=== PATIENT | male | born 1975 ===

== ENCOUNTER 2018-05-28 16:51 | Inpatient (IN) | payer MEDICAID ==
[2018-05-28 16:57] VITALS: BMI 28.0
[2018-05-28 17:47] LABS: BASO # 0.2 K/uL (0.0-0.2); BASO % 1.7 % (0.0-2.0); EOS % 0.2 % (0.0-4.0); HEMOGLOBIN 15.3 g/dL (12.0-18.0); LYMPH # 1.7 K/uL (1.0-4.3); LYMPH % 15.4 % (20.0-40.0); MEAN CELL VOLUME 84.9 fL (80.0-94.0); MEAN CORPUSCULAR HEMOGLOBIN 28.8 pg (27.0-31.0); MEAN CORPUSCULAR HGB CONC 33.9 g/dL (33.0-37.0); MEAN PLATELET VOLUME 8.1 fL (7.2-11.7); MONO # 0.9 K/uL (0.0-0.8); MONO % 7.9 % (0.0-10.0); NEUT # 8.2 K/uL (1.8-7.0); NEUT % 74.8 % (50.0-75.0); NRBC % 0.1 % (0.0-2.0); RBC 5.32 Mil/uL (4.40-5.90); RED CELL DISTRIBUTION WIDTH 13.9 % (11.5-14.5); WHITE BLOOD COUNT 10.9 K/uL (4.8-10.8)
[2018-05-28 17:55] LABS: INR 1.2; PROTHROMBIN TIME 12.9 SECONDS (9.7-12.2)
--- NOTE | 2018-05-28 17:58 | RAD ---
Date of service: 05/28/2018 PROCEDURE: CHEST RADIOGRAPH, 1 VIEW HISTORY: chest pain COMPARISON: None available. FINDINGS: LUNGS: Clear. PLEURA: No pneumothorax or pleural fluid seen. CARDIOVASCULAR: No radiographic findings to suggest acute or significant cardiovascular disease. OSSEOUS STRUCTURES: No significant abnormalities. VISUALIZED UPPER ABDOMEN: Normal. OTHER FINDINGS: None. IMPRESSION: No active disease.
[2018-05-28 18:05] LABS: ALB/GLOB RATIO 1.6 (1.0-2.1); ALBUMIN 4.9 g/dL (3.5-5.0); ALT/SGPT 74 U/L (21-72); AST/SGOT 33 U/L (17-59); BLOOD UREA NITROGEN 12 mg/dL (9-20); CALCIUM 10.2 mg/dl (8.6-10.4); GFR NON-AFRICAN AMERICAN > 60
[2018-05-28 18:17] LABS: B-TYPE NATRIURETIC PEPTIDE 142 pg/mL (0-450)
--- NOTE | 2018-05-28 18:20 | C.PDOC ---
History Of Present Illness The patient reports that he developed mid sternal chest pain which is associated with left arm radiation. The patient admit that he took 20 tablets Vivance last night and say thinks he was trying to hurt humself. denies SOB, back pain, leg edema, nausea, vomiting, travel, cough. <Caren Hinds - Last Filed: 05/28/18 18:59> History Per: Patient History/Exam Limitations: no limitations Onset/Duration Of Symptoms: Persistent Current Symptoms Are (Timing): Still Present Pain Scale Rating Of: 5 Associated Symptoms: denies: Nausea, Dyspnea, Diaphoresis Exacerbating Factors: None Alleviating Factors: None <Caren Hinds - Last Filed: 05/28/18 18:59> <Tayler Esposito - Last Filed: 05/28/18 19:25> <Alexandra Estes - Last Filed: 05/28/18 22:33> Time Seen by Provider: 05/28/18 17:10 Chief Complaint (Nursing): Chest Pain Past Medical History Vital Signs: Last Vital Signs Temp 99.1 F 05/28/18 16:59 Pulse 104 H 05/28/18 16:59 Resp 14 05/28/18 16:59 BP 165/103 H 05/28/18 16:59 Pulse Ox 98 05/28/18 16:59 - Medical History PMH: Asthma Denies: Chronic Kidney Disease Family History: States: Unknown Family Hx - Social History Hx Tobacco Use: No Hx Alcohol Use: Yes Hx Substance Use: Yes (pt denies) - Immunization History Hx Tetanus Toxoid Vaccination: No Hx Influenza Vaccination: No Hx Pneumococcal Vaccination: No <Caren Hinds - Last Filed: 05/28/18 18:59> Vital Signs: Last Vital Signs Temp 99.1 F 05/28/18 16:59 Pulse 108 H 05/28/18 19:18 Resp 17 05/28/18 19:18 BP 159/101 H 05/28/18 19:18 Pulse Ox 98 05/28/18 19:18 <Tayler Esposito - Last Filed: 05/28/18 19:25> Vital Signs: Last Vital Signs Temp 99.1 F 05/28/18 16:59 Pulse 104 H 05/28/18 16:59 Resp 14 05/28/18 16:59 BP 165/103 H 05/28/18 16:59 Pulse Ox 98 05/28/18 19:00 <Alexandra Estes - Last Filed: 05/28/18 22:33> Physical Exam - Physical Exam Appears: Non-toxic, No Acute Distress Skin: Normal Color, Warm, No Rash Head: Atraumatic, Normacephalic Eye(s): bilateral: Normal Inspection, PERRL, EOMI Oral Mucosa: Moist Throat: No Erythema, No Exudate Neck: Normal ROM, Supple Chest: Symmetrical, Tenderness Cardiovascular: Rhythm Regular, No Friction Rub, No Murmur Respiratory: Normal Breath Sounds, No Rales, No Rhonchi, No Stridor, No Wheezing Gastrointestinal/Abdominal: Soft, No Tenderness Back: Normal Inspection, No CVA Tenderness Extremity: Normal ROM, No Tenderness, No Swelling Neurological/Psych: Oriented x3, Normal Motor, Normal Sensation <Caren Hinds - Last Filed: 05/28/18 18:59> ED Course And Treatment - Laboratory Results Result Diagrams: 05/28/18 17:42 05/28/18 17:42 ECG: Interpreted By Me ECG Rhythm: Sinus Tachycardia ECG Interpretation: No Acute Changes Rate From EC (bpm) O2 Sat by Pulse Oximetry: 98 (on RA) Pulse Ox Interpretation: Normal - Radiology CXR: Interpreted by Me CXR Interpretation: Yes: No Acute Disease. No: Infiltrates <Caren Hinds - Last Filed: 05/28/18 18:59> - Laboratory Results Result Diagrams: 05/28/18 17:42 05/28/18 17:42 <Tayler Esposito - Last Filed: 05/28/18 19:25> - Laboratory Results Result Diagrams: 05/28/18 17:42 05/28/18 17:42 Pulse Ox Interpretation: Normal - Radiology CXR: Interpreted by Me, Viewed By Me CXR Interpretation: No: Infiltrates, Fracture, Pnemothorax <Alexandra Estes - Last Filed: 05/28/18 22:33> Critical Care Time - Critical Care Note Total Time (in mins): 30 Documented critical care: time excludes all time spent performing seperately billable procedures. <Alexandra Estes - Last Filed: 05/28/18 22:33> Medical Decision Making Medical Decision Making: Poison control was called who states to monitor vitals and provide supportive care. <Caren Hinds - Last Filed: 05/28/18 18:59> Disposition - Disposition Disposition Time: 18:48 <Caren Hinds - Last Filed: 05/28/18 18:59> <Tayler Esposito Obi - Last Filed: 05/28/18 19:25> Discussed With DrTucker: Lionel Trejo Comment: accepted the pt on his service and took over the care at 10:15 PM Doctor Will See Patient In The: Hospital Counseled Patient/Family Regarding: Studies Performed, Diagnosis - Disposition Disposition Time: 19:00 - POA Present On Arrival: Poor Glycemic Control <Alexandra Estes - Last Filed: 05/28/18 22:33> - Disposition Disposition: HOSPITALIZED Condition: FAIR Forms: [employer] (Danish) - Clinical Impression Clinical Impression: Chest pain, Depressed, Drug overdose, intentional - PA / DOOR TO [employer]OR [employer]OR / Resident Statement MD/DO has reviewed & agrees with the documentation as recorded. <Tayler Esposito Obi - Last Filed: 05/28/18 19:25> Physician Patient Turnover Patient Signed Over To: Alexandra Estes Handoff Comments: PEnding labs and psych evaluation <Caren Hinds - Last Filed: 05/28/18 18:59> Decision To Admit <Caren Hinds - Last Filed: 05/28/18 18:59> - Pt Status Changed To: Hospital Disposition Of: Inpatient - Admit Certification Admit to Inpatient:: After my assessment, the patient will require hospitalization for at least two midnights. This is because of the severity of symptoms shown, intensity of services needed, and/or the medical risk in this patient being treated as an outpatient. - InPatient: Physician Admission Certification: I certify that this patient requires 2 or more midnights of care for the following reason:: After my assessment, the patient will require hospitalization for at least two midnights. This is because of the severity of symptoms shown, intensity of services needed, and/or the medical risk in this patient being treated as an outpatient - . Bed Request Type: Telemetry Admitting Physician: Lionel Trejo <Alexandra Estes - Last Filed: 05/28/18 22:33> - . Patient Diagnosis: Chest pain, Depressed, Drug overdose, intentional
[2018-05-28 19:09] LABS: URINE BILIRUBIN NEGATIVE (NEGATIVE); URINE BLOOD NEGATIVE (NEGATIVE); URINE CLARITY Clear (Clear); URINE COLOR Yellow (YELLOW); URINE GLUCOSE (UA) NORMAL (Normal); URINE LEUKOCYTE ESTERASE NEG Leu/uL (Negative); URINE PROTEIN NEGATIVE (NEGATIVE); URINE UROBILINOGEN NORMAL mg/dL (0.2-1.0)
[2018-05-28 19:21] LABS: BARBITURATES, UR NEGATIVE (NEGATIVE); BENZODIAZEPINES, UR NEGATIVE (NEGATIVE); OPIATES, UR NEGATIVE (NEGATIVE); PHENCYCLIDINE, UR NEGATIVE (NEGATIVE)
[2018-05-28] MEDS ORDERED: Labetalol 25mg/5ml Syringe IVP STA (21:39)
[2018-05-28] MEDS ORDERED: Labetalol 5mg/ml (4ml) ONE (21:46)
[2018-05-28] MEDS ORDERED: Dextrose 5%-0.225% NS 1,000 ML IV ONE (22:39)
[2018-05-28] MEDS: Dextrose 5%/0.45% NS 1,000 ML IV SCH (22:41)
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
[2018-05-29] MEDS: Dextrose 5%/0.45% NS 1,000 ML IV SCH ×4 (12:17→22:45)
--- NOTE | 2018-05-29 16:18 | CARD ---
APPROVED REPORT Date of service: 05/28/2018 EKG Measurement Heart [id number] <Conclusion> Sinus tachycardia Otherwise normal ECG
--- NOTE | 2018-05-29 18:35 | CP.PCM.PN ---
Subjective - Date & Time of Evaluation Date of Evaluation: 05/29/18 Time of Evaluation: 09:50 - Subjective Subjective: CC: Vivance Overdose HPI: Patient is a 42 year old male with past medical history of asthma, substance abuse and other psychiatric illness (psychosis, anxiety and PTSD), who presents to the ED with complete stabbing chest pain radiating to the shoulder. Patient also noted on admission of Vyvanse overdose ( 20 tablets). Patient states that he too the pills because he was trying to stay awake not because he was trying to hurt himself. During the encounter, patient still admits to mild chest pain but denies palpitation, diaphoresis, nausea, vomiting, abdominal pain, diarrhea, constipation, hematochezia or numbness/tingling. PMHx: asthma, substance abuse and other psychiatric illness (psychosis, anxiety and PTSD) PSHx: Right foot surgery FHx: Significant for DM, HTN and bipolar Medication: Celexa 60mg PO daily, Geodon 10mg PO daily Allergies: NKDA Social Hx: Lives with mother, unemployed. Admits to cocaine use (last use 3 weeks ago), denies tobacco and ETOH use Objective - Vital Signs/Intake and Output Vital Signs (last 24 hours): Temp Pulse Resp BP Pulse Ox 98.3 F 103 H 20 135/91 H 98 05/29/18 15:00 05/29/18 15:00 05/29/18 15:00 05/29/18 15:00 05/29/18 15:00 Intake and Output: 05/29/18 05/29/18 06:59 18:59 Intake Total 750 1300 Balance 750 1300 - Medications Medications: Current Medications Aripiprazole (Abilify) 5 mg PO QPM [facility] Last Admin: 05/29/18 17:24 Dose: 5 mg Clonazepam (Klonopin) 0.5 mg PO BID OTTO Last Admin: 05/29/18 12:16 Dose: 0.5 mg Escitalopram Oxalate (Lexapro) 10 mg PO DAILY [facility] Last Admin: 05/29/18 12:16 Dose: 10 mg Heparin Sodium (Porcine) (Heparin) 5,000 units SC Q12 [facility] Dextrose/Sodium Chloride (Dextrose 5%/0.45% Ns 1000 Ml) 1,000 mls @ 125 mls/hr IV .Q8H [facility] Last Admin: 05/29/18 15:43 Dose: Not Given Influenza Virus Vaccine (Fluzone Quad [id number]) 60 mcg IM .ONCE ONE Stop: 05/30/18 10:01 Ketorolac Tromethamine (Toradol) 30 mg IVP Q6H PRN PRN Reason: Pain, moderate (4-7) Last Admin: 05/29/18 05:18 Dose: 30 mg Quetiapine Fumarate (Seroquel) 100 mg PO HS OTTO - Labs Labs: 05/28/18 17:42 05/28/18 17:42 PT 12.9 SECONDS (9.7-12.2) H 05/28/18 17:42 INR 1.2 05/28/18 17:42 APTT 33 SECONDS (21-34) 05/28/18 17:42 - Constitutional Appears: No Acute Distress - Head Exam Head Exam: ATRAUMATIC - Eye Exam Eye Exam: EOMI - ENT Exam ENT Exam: Mucous Membranes Moist - Respiratory Exam Respiratory Exam: NORMAL BREATHING PATTERN - Cardiovascular Exam Cardiovascular Exam: REGULAR RHYTHM, +S1, +S2 - GI/Abdominal Exam GI & Abdominal Exam: Soft, Normal Bowel Sounds. absent: Guarding, Rigid, Tenderness - Extremities Exam Extremities Exam: Normal Inspection. absent: Calf Tenderness, Pedal Edema - Neurological Exam Neurological Exam: Alert, Awake, Oriented x3 - Psychiatric Exam Psychiatric exam: Normal Affect - Skin Skin Exam: Normal Color Assessment and Plan (1) Chest pain Assessment & Plan: Resolved Troponin negative X2 EKG: No EKG changes Status: Acute (2) Drug overdose, intentional Assessment & Plan: Psychiatric consult, Dr. Silva * Management as per psychiatry All plans and management discussed with Dr. Trejo Status: Acute
[2018-05-30] MEDS: Dextrose 5%/0.45% NS 1,000 ML IV SCH ×3 (05:50→22:45)
[2018-05-30 08:02] LABS: BASO % 0.3 % (0.0-2.0); EOS # 0.3 K/uL (0.0-0.7); EOS % 2.9 % (0.0-4.0); HEMOGLOBIN 14.1 g/dL (12.0-18.0); LYMPH # 2.3 K/uL (1.0-4.3); LYMPH % 22.9 % (20.0-40.0); MEAN CELL VOLUME 84.5 fL (80.0-94.0); MEAN CORPUSCULAR HEMOGLOBIN 28.9 pg (27.0-31.0); MEAN CORPUSCULAR HGB CONC 34.2 g/dL (33.0-37.0); MEAN PLATELET VOLUME 7.8 fL (7.2-11.7); MONO # 0.7 K/uL (0.0-0.8); MONO % 6.8 % (0.0-10.0); NEUT # 6.9 K/uL (1.8-7.0); NEUT % 67.1 % (50.0-75.0); NRBC % 0.1 % (0.0-2.0); RBC 4.9 Mil/uL (4.40-5.90); RED CELL DISTRIBUTION WIDTH 13.9 % (11.5-14.5); WHITE BLOOD COUNT 10.2 K/uL (4.8-10.8)
[2018-05-30 08:29] LABS: ALB/GLOB RATIO 1.5 (1.0-2.1); ALBUMIN 3.9 g/dL (3.5-5.0); ALT/SGPT 65 U/L (21-72); AST/SGOT 35 U/L (17-59); BLOOD UREA NITROGEN 13 mg/dL (9-20); GFR NON-AFRICAN AMERICAN > 60
[2018-05-30] MEDS ORDERED: Influenza Vaccine 60 MCG/0.5 ML SYR (3 yr & up) IM ONE (10:00)
[2018-05-31] MEDS: Dextrose 5%/0.45% NS 1,000 ML IV SCH (05:56)
[2018-05-31] MEDS ORDERED: Albuterol-Ipratrop 3 mg / 0.5 (3 ml) UD INH PRN (07:34)
[2018-05-31 07:43] LABS: BASO % 0.4 % (0.0-2.0); EOS # 0.5 K/uL (0.0-0.7); EOS % 5.2 % (0.0-4.0); LYMPH # 1.9 K/uL (1.0-4.3); LYMPH % 21.2 % (20.0-40.0); MEAN CELL VOLUME 85.1 fL (80.0-94.0); MEAN CORPUSCULAR HEMOGLOBIN 29.2 pg (27.0-31.0); MEAN CORPUSCULAR HGB CONC 34.3 g/dL (33.0-37.0); MONO # 0.6 K/uL (0.0-0.8); MONO % 6.2 % (0.0-10.0); NEUT # 6.1 K/uL (1.8-7.0); RBC 4.78 Mil/uL (4.40-5.90); RED CELL DISTRIBUTION WIDTH 13.8 % (11.5-14.5); WHITE BLOOD COUNT 9.1 K/uL (4.8-10.8)
[2018-05-31 08:05] LABS: ALB/GLOB RATIO 1.3 (1.0-2.1); ALBUMIN 3.8 g/dL (3.5-5.0); ALT/SGPT 78 U/L (21-72); AST/SGOT 40 U/L (17-59); BLOOD UREA NITROGEN 10 mg/dL (9-20); CALCIUM 8.9 mg/dl (8.6-10.4); GFR NON-AFRICAN AMERICAN > 60
--- NOTE | 2018-05-31 10:06 | HP ---
HISTORY OF PRESENT ILLNESS: Mr. Sterling has been admitted to the hospital with drug overdose of the Vyvanse. The patient has psychiatric disorder, psychosis, came to the ER with tachycardia. He noticed shaking prior to admission. PHYSICAL EXAMINATION GENERAL: The patient is awake, alert, and oriented. VITAL SIGNS: Temperature 98, pulse is 120, blood pressure 120/70. HEENT: Within normal limits. NECK: Supple. HEART: Regular. CHEST: Symmetrical. ABDOMEN: Soft. EXTREMITIES: No edema. IMPRESSION: Drug overdose. PLAN: The patient received supportive care. Lionel Trejo MD
--- NOTE | 2018-05-31 13:15 | CP.PCM.PN ---
<Rasheed Dimas E - Last Filed: 05/31/18 15:11> Subjective - Date & Time of Evaluation Date of Evaluation: 05/31/18 Time of Evaluation: 07:40 - Subjective Subjective: Medicine progress note (Dr. Cevallos covering Dr. Trejo's service) Patient was seen and examined at bedside. Patient was resting comfortably without any acute issues. Patient denies symptoms of chest pain, palpitations, SOB, fever, chills, nausea, vomiting, abdominal pain, numbness or tingling but admits headache. Objective - Vital Signs/Intake and Output Vital Signs (last 24 hours): Temp Pulse Resp BP Pulse Ox 97.3 F L 73 20 135/88 97 05/31/18 07:00 05/31/18 07:10 05/31/18 07:00 05/31/18 07:00 05/31/18 07:00 Intake and Output: 05/31/18 05/31/18 06:59 18:59 Intake Total 1600 Output Total 600 Balance 1000 - Medications Medications: Current Medications Acetaminophen (Tylenol 325mg Tab) 650 mg PO Q6 PRN PRN Reason: Pain, Mild (1-3) Last Admin: 05/31/18 05:55 Dose: 650 mg Albuterol/Ipratropium (Duoneb 3 Mg/0.5 Mg (3 Ml) Ud) 3 ml INH RQ6 PRN PRN Reason: Shortness of Breath Aripiprazole (Abilify) 5 mg PO QPM [facility] Last Admin: 05/30/18 17:11 Dose: 5 mg Clonazepam (Klonopin) 0.5 mg PO BID [facility] Last Admin: 05/31/18 10:06 Dose: 0.5 mg Escitalopram Oxalate (Lexapro) 10 mg PO DAILY [facility] Last Admin: 05/31/18 10:06 Dose: 10 mg Heparin Sodium (Porcine) (Heparin) 5,000 units SC Q12 [facility] Last Admin: 05/31/18 10:06 Dose: 5,000 units Quetiapine Fumarate (Seroquel) 100 mg PO HS [facility] Last Admin: 05/30/18 21:25 Dose: 100 mg - Labs Labs: 05/31/18 07:37 05/31/18 07:37 PT 12.9 SECONDS (9.7-12.2) H 05/28/18 17:42 INR 1.2 05/28/18 17:42 APTT 33 SECONDS (21-34) 05/28/18 17:42 - Constitutional Appears: Well, No Acute Distress - Head Exam Head Exam: ATRAUMATIC - Eye Exam Eye Exam: EOMI, Normal appearance - ENT Exam ENT Exam: Mucous Membranes Moist - Respiratory Exam Respiratory Exam: Clear to Ausculation Bilateral, NORMAL BREATHING PATTERN. absent: Prolonged Expiratory Phase, Rhonchi, Wheezes, Respiratory Distress - Cardiovascular Exam Cardiovascular Exam: REGULAR RHYTHM, +S1, +S2. absent: Tachycardia, Clicks, Irregular Rhythm, Murmur - GI/Abdominal Exam GI & Abdominal Exam: Soft, Normal Bowel Sounds. absent: Guarding, Rigid, Tenderness - Extremities Exam Extremities Exam: Normal Inspection. absent: Calf Tenderness, Full ROM, Pedal Edema - Neurological Exam Neurological Exam: Alert, Awake, Oriented x3 - Psychiatric Exam Psychiatric exam: Anxious - Skin Skin Exam: Normal Color Assessment and Plan (1) Chest pain Assessment & Plan: Resolved Troponin negative X2 EKG: No EKG changes x2 Status: Acute (2) Drug overdose, intentional Assessment & Plan: Psychiatric consult, Dr. Silva * Management as per psychiatry * Patient will be transferred to psychiatric unit ( 5E) today All plans and management discussed with Dr. Trejo Status: Acute <Almza Cevallos V - Last Filed: 06/03/18 13:20> Objective - Vital Signs/Intake and Output Vital Signs (last 24 hours): Temp Pulse Resp BP Pulse Ox 98.5 F 105 H 18 138/99 H 96 06/02/18 06:45 06/02/18 15:56 06/02/18 06:45 06/02/18 15:56 06/02/18 06:45 - Medications Medications: Current Medications Acetaminophen (Tylenol 325mg Tab) 650 mg PO Q6 PRN PRN Reason: Pain, Mild (1-3) Last Admin: 05/31/18 20:54 Dose: 650 mg Albuterol/Ipratropium (Duoneb 3 Mg/0.5 Mg (3 Ml) Ud) 3 ml INH RQ6 PRN PRN Reason: Shortness of Breath Amoxicillin/Clavulanate Potassium (Augmentin 875 Mg-125 Mg Tab) 1 tab PO Q12H OTTO; Protocol Last Admin: 10/14/18 18:54 Dose: 1 tab Aripiprazole (Abilify) 10 mg PO QPM [facility] Last Admin: 06/02/18 18:54 Dose: 10 mg Clonazepam (Klonopin) 0.5 mg PO BID [facility] Last Admin: 06/02/18 18:54 Dose: 0.5 mg Docusate Sodium (Colace) 100 mg PO BID [facility] Last Admin: 06/02/18 18:54 Dose: 100 mg Escitalopram Oxalate (Lexapro) 15 mg PO DAILY [facility] Last Admin: 06/02/18 10:35 Dose: 15 mg Ondansetron HCl (Zofran Odt) 4 mg PO Q6H PRN PRN Reason: Vomiting Last Admin: 06/02/18 18:06 Dose: 4 mg Quetiapine Fumarate (Seroquel) 100 mg PO HS [facility] Last Admin: 06/01/18 21:50 Dose: Not Given Saccharomyces Boulardii (Florastor) 250 mg PO DAILY [facility] Last Admin: 06/02/18 10:35 Dose: 250 mg Ziprasidone (Geodon Cap) 60 mg PO BID [facility] Last Admin: 06/02/18 18:54 Dose: 60 mg - Labs Labs: 05/31/18 07:37 05/31/18 07:37 PT 12.9 SECONDS (9.7-12.2) H 05/28/18 17:42 INR 1.2 05/28/18 17:42 APTT 33 SECONDS (21-34) 05/28/18 17:42 Attending/Attestation - Attestation I have personally seen and examined this patient.: Yes I have fully participated in the care of the patient.: Yes I have reviewed all pertinent clinical information, including history, physical exam and plan: Yes Notes (Text): This is late computer entry for 05/31/18. Hospitalist Covering Dr. Trejo. Patient observed on telemetry for chest pain complaint. Patients LLUVIA X3 negative and EKG shows NSR. Patient with prominent history for multiple psychiatric conditions, came to hospital following ingestion of Vyvanse with associated chest pain. Patient seen at bedside with the resident. patient is awake, alert, NAD, oriented. patient is medically stable for transferred to [facility] for further psychiatric management. Medicine to sign off. May reconsult if needed. Thank you.
--- NOTE | 2018-05-31 15:01 | CARD ---
APPROVED REPORT Date of service: 05/29/2018 EKG Measurement Heart [id number] <Conclusion> Normal sinus rhythm Normal ECG
--- NOTE | 2018-05-31 21:30 | PCM.BM ---
<JuliaBerta Sabine - Last Filed: 05/31/18 21:28> Treatment Plan Problems - Problems identified on initial assessmt Depression Date Initiated: 05/31/18 Time Initiated: 21:29 Assessment reference: NA Status: Active Suicidal ideation Date Initiated: 05/31/18 Time Initiated: 21:29 Assessment reference: NA Status: Monitor Treatment assets and liabiliti Patient Assests: cooperative, ADL independent, physically healthy - Milieu Protocol Maintain good personal hygiene: daily Encourage regular showers, daily Remind patient to perform daily oral care, daily Assist patient to perform ADL's Conduct patient checks and document Observation sheet: Q15 minutes Maintain personal safety: every shift Educate patient to report safety concerns to staff, every shift Monitor environment for contraband/sharps Medication safety: Monitor for expected outcome, potential side effects: every shift, Assess barriers to learning: every shift, Assess readiness for medication education: every shift Milieu Narrative: Lexapro for depression Abilify for mood swings, AH and paranoia and irritability. Dose to be increased Seroquel 100 hs for insomnia Klonopin for anxiety which may help with the stimulant OD as well As need medications All risks, benefits and alternatives of the meds discussed, and the pt agreed and understood. Psychoeducation and support daily Encourage compliance with meds and after care Refer to outpatient program ie [facility] Teach healthy lifestyle methods, i.e. diet, exercise, meditation Smoking cessation and patch if needed Pt may be transferred to [address] [place] [address] when medically cleared. He may be screened for invol. admission by [facility] if he demands to leave AMA. 32 min Discharge/Continuing Care - Treatment Team Participation Patient/Family/SO Statement: Lexapro for depression Abilify for mood swings, AH and paranoia and irritability. Dose to be increased Seroquel 100 hs for insomnia Klonopin for anxiety which may help with the stimulant OD as well As need medications All risks, benefits and alternatives of the meds discussed, and the pt agreed and understood. Psychoeducation and support daily Encourage compliance with meds and after care Refer to outpatient program ie [facility] Teach healthy lifestyle methods, i.e. diet, exercise, meditation Smoking cessation and patch if needed Pt may be transferred to [address] [facility] when medically cleared. He may be screened for invol. admission by [facility] if he demands to leave AMA. 32 min <DelOrbe,Christiane - Last Filed: 06/03/18 11:30> Family Contact Family involvement: Famliy/SO not involved - Goals for Treatment Patient goals for treatment: "I need an outpatient program." Discharge/Continuing Care - Education Needs Education Needs: Patient Medication, Patient Coping Skills - Discharge Discharge Criteria: Tolerates medication w/o severe side effects, Reduction of target symptoms Discharge to:: Home - Treatment Team Participation Discussed with Family/SO: No Was Patient/Family/SO present at Treatment Team Meeting: Yes <Benny Silva - Last Filed: 06/04/18 11:38> - Diagnosis (1) Depression, major, recurrent, severe with psychosis Status: Acute Interventions: 06/03/18 11:38 * Assess/adjust medications daily and /or as needed * See patient on an individual basis 7x/week to assess symptoms of depression * Monitor for side effects & effectiveness of medications *
--- NOTE | 2018-06-01 09:57 | CT ---
Date of service: 06/01/2018 PROCEDURE: CT HEAD WITHOUT CONTRAST. HISTORY: code star COMPARISON: Noncontrast head CT performed 03/26/13 TECHNIQUE: Axial computed tomography images were obtained through the head/brain without intravenous contrast. Radiation dose: Total exam DLP = 1051.98 mGy-cm. This CT exam was performed using one or more of the following dose reduction techniques: Automated exposure control, adjustment of the mA and/or kV according to patient size, and/or use of iterative reconstruction technique. FINDINGS: HEMORRHAGE: No intracranial hemorrhage. BRAIN: No mass effect or edema. The schmidt-white matter differentiation appears intact. Please note that MRI with diffusion imaging is more sensitive in the detection of acute ischemic event. VENTRICLES: No hydrocephalus. CALVARIUM: Unremarkable. PARANASAL SINUSES: Complete opacification of the right maxillary sinus. Mucosal polyp/retention cysts involving the left maxillary sinus. Mucosal thickening ethmoid air cells. MASTOID AIR CELLS: Unremarkable as visualized. No inflammatory changes. OTHER FINDINGS: Chronic right lamina papyracea fracture deformity. IMPRESSION: No acute intracranial pathology identified. Complete opacification of the right maxillary sinus. Mucosal polyp/retention cysts involving the left maxillary sinus. Mucosal thickening ethmoid air cells. Chronic right lamina papyracea fracture deformity.
--- NOTE | 2018-06-01 10:07 | PCM.FALL ---
Addendum entered and electronically signed by Zia Yoon DO 06/01/18 18:41: Augmentin 875/125mg 1 tab PO Q12 started Florastor started Will sign out patient for Dr. Trejo's service on Sunday. Will monitor until then. Original Note: <Zia Yoon - Last Filed: 06/01/18 18:39> Post Fall Progress Note - Post Fall Fall Date: 06/01/18 Fall Time: 08:30 Description of Fall: 42 year old male with a past medical history of substance abuse, psychosis, anxiety, ptsd, and asthma who was initially admitted for Vyvanse overdose (20 tablets) who recently transferred from medical floor after medically stabilized. Code star was called after patient reported headache and sinus congestion. Per nursing assistant, patient placed himself on the floor and stated he fell. Per nursing assistant, patient didn't hit his head, or have loss or conciousness, or bowel and bladder function. Plan -Head CT -Mucinex - Post Fall Exam Vital Sign: Temp Pulse Resp BP Pulse Ox 97.2 F L 76 18 152/98 H 99 06/01/18 06:04 06/01/18 06:04 06/01/18 06:04 06/01/18 06:04 06/01/18 06:04 Skull Exam: Negative for: Scalp wound, Scalp hematoma, Scalp depression, Ridge in skull Eye Exam: Positive for: Pupils equal Ear Exam: Negative for: Discharge Nose Exam: Negative for: Discharge Skin Exam: Negative for: Colour, Lacerations, Grazes, Bruising Mouth Exam: Negative for: Tongue bitten, Teeth dislodge Neck Exam: Negative for: Tenderness Spinal Exam: Negative for: Tenderness Chest Exam: Negative for: Difficulty breathing, Tenderness in collar bones Abdomen Exam: Negative for: Tenderness Pelvic Exam: Negative for: Tenderness Arm Exam: Negative for: Deformity Leg Exam: Negative for: Deformity Impression/Plan: Plan: -Head CT -Tylenol 650mg PRN given -Mucinex. Plan discussed with Dr. Cevallos. Zia Yoon, PGY-2 <Almaz Cevallos V - Last Filed: 06/03/18 13:24> Post Fall Progress Note - Post Fall Exam Vital Sign: Temp Pulse Resp BP Pulse Ox 97.9 F 63 20 131/83 97 06/03/18 06:00 06/03/18 06:00 06/03/18 06:00 06/03/18 06:00 06/03/18 06:00 Attending/Attestation - Attestation Notes (Text): Brief Hospitalist Note Discussed with resident mail messenger contractor. Reviewed CT Head: no acute intracranial pathology identifed. Complete opacification of the right maxillary sinus. Mucosal polyp retention cysts involving the left maxillary sinus. Mucosal thcikening ethmoid air cells. Chronic right laimina papyracea fracture. Advised resident to start Augmentin and probiotic for treatment of sinusitis and ask biomedical service engineer on Dr. Trejo service to follow-up on Sunday. If patient's sinusitis do not improve, may need ENT.
[2018-06-01] MEDS: Amoxicillin-Clav 875-125 mg Tab PO SCH (21:43)
[2018-06-02] MEDS: Amoxicillin-Clav 875-125 mg Tab PO SCH ×2 (06:46→18:54)
[2018-06-02] MEDS: Saccharomyces Boulardi 250 mg Cap PO SCH (10:35)
--- NOTE | 2018-06-03 05:49 | PCM.PYCHPN ---
Psychiatric Progress Note - Psychiatric Progress Note Patient seen today, length of contact: 15 MIN Patient Chief Complaint: MY HEAD HURTS Problems Identified/Issues Discussed: PT SEEN AND EXAMINED D/W TEAM D/W PT WHY HE FELL TO FLOOR Medical Problems: SINUS INFECTION Diagnostic Results: REVIEWED Medication Change: Yes (ANTIBIOTICS) Medical Record Reviewed: Yes Mental Status Examination - Cognitive Function Orientation: Person, Place, Situation, Time Memory: Intact Attention: WNL Concentration: Poor Association: WNL Fund of Knowledge: WNL - Mood Mood: Depressed, Anxious - Speech Speech: Appropriate - Formal Thought Process Formal Thought Process: Hallucinations, Paranoia - Suicidal Ideation Suicidal Ideation: No - Homicidal Ideation Homicidal Ideation: No Goal/Treatment Plan - Goal/Treatment Plan Need for Continued Stay: Discharge may exacerbated symptoms, Severe functional impairment Progress Toward Problem(s) and Goals/Treatment Plan: SCHIZOAFFECTIVE DISORDER F[facility]EL[facility] CBT SUPPORTIVE PSYCHOTHERAPY SINUS INFECTION: ANTIBIOTICS Estimated Date of D/C: 06/07/18 - Smoking Cessation Smoking Cessation Initiated: No
--- NOTE | 2018-06-03 05:55 | PCM.PYCHPN ---
Psychiatric Progress Note - Psychiatric Progress Note Patient seen today, length of contact: 15 MIN Patient Chief Complaint: I FEEL DIZZY Problems Identified/Issues Discussed: PT SEEN ANDEXAMINED D/W TEAM D/W PT CAUSES OF THE DIZZINESS Medical Problems: VERTIGO Diagnostic Results: REVIEWED Medication Change: No (ANTIBIOTICS) Medical Record Reviewed: Yes Mental Status Examination - Cognitive Function Orientation: Person, Place, Situation, Time Memory: Intact Attention: WNL Concentration: Poor Association: WNL Fund of Knowledge: WNL - Mood Mood: Depressed, Anxious - Affect Affect: Constricted - Speech Speech: Appropriate - Formal Thought Process Formal Thought Process: Hallucinations, Paranoia - Suicidal Ideation Suicidal Ideation: No - Homicidal Ideation Homicidal Ideation: No Goal/Treatment Plan - Goal/Treatment Plan Need for Continued Stay: Discharge may exacerbated symptoms, Severe functional impairment Progress Toward Problem(s) and Goals/Treatment Plan: SCHIZOAFFECTIVE D/O FIDELINA PATEL [place] CBT SUPPORTIVE PSYCHOTHERAPY SINYUS INFECTION: ANTIBIOTICS. Estimated Date of D/C: 06/07/18 - Smoking Cessation Smoking Cessation Initiated: No
[2018-06-03] MEDS: Amoxicillin-Clav 875-125 mg Tab PO SCH ×2 (07:46→17:46)
[2018-06-03 07:51] LABS: BASO % 0.6 % (0.0-2.0); EOS # 0.3 K/uL (0.0-0.7); EOS % 3.8 % (0.0-4.0); HEMOGLOBIN 15.3 g/dL (12.0-18.0); LYMPH # 2.6 K/uL (1.0-4.3); LYMPH % 31.6 % (20.0-40.0); MEAN CELL VOLUME 85.2 fL (80.0-94.0); MEAN CORPUSCULAR HEMOGLOBIN 29.4 pg (27.0-31.0); MEAN CORPUSCULAR HGB CONC 34.5 g/dL (33.0-37.0); MEAN PLATELET VOLUME 7.8 fL (7.2-11.7); MONO # 0.7 K/uL (0.0-0.8); MONO % 8.4 % (0.0-10.0); NEUT # 4.5 K/uL (1.8-7.0); NEUT % 55.6 % (50.0-75.0); RBC 5.22 Mil/uL (4.40-5.90); RED CELL DISTRIBUTION WIDTH 13.9 % (11.5-14.5); WHITE BLOOD COUNT 8.1 K/uL (4.8-10.8)
[2018-06-03 08:08] LABS: ALB/GLOB RATIO 1.5 (1.0-2.1); ALBUMIN 4.1 g/dL (3.5-5.0); ALT/SGPT 104 U/L (21-72); AST/SGOT 48 U/L (17-59); BLOOD UREA NITROGEN 18 mg/dL (9-20); CALCIUM 9.3 mg/dl (8.6-10.4); GFR NON-AFRICAN AMERICAN > 60
[2018-06-03] MEDS: Saccharomyces Boulardi 250 mg Cap PO SCH (10:11)
--- NOTE | 2018-06-03 13:09 | PCM.PYCHPN ---
Psychiatric Progress Note - Psychiatric Progress Note Patient seen today, length of contact: 16 min Patient Chief Complaint: "A little better" Problems Identified/Issues Discussed: The pt is seen, chart reviewed, case discussed with staff. The pt is compliant with medications and reports no side-effects. Symptoms are improving but needs more time to stabilize. Pt attends groups and activities. Support given, psycho-education provided. After care discussed. Medication Change: Yes (inccrease lexapro) Medical Record Reviewed: Yes Mental Status Examination - Cognitive Function Orientation: Person, Place, Situation, Time Memory: Intact Attention: WNL Concentration: Poor Association: WNL Fund of Knowledge: WNL - Mood Mood: Depressed, Anxious - Affect Affect: Constricted - Speech Speech: Appropriate - Formal Thought Process Formal Thought Process: Hallucinations, Paranoia - Suicidal Ideation Suicidal Ideation: No - Homicidal Ideation Homicidal Ideation: No Goal/Treatment Plan - Goal/Treatment Plan Need for Continued Stay: Discharge may exacerbated symptoms, Severe functional impairment Progress Toward Problem(s) and Goals/Treatment Plan: Lexapro for depression Abilify for mood swings, AH and paranoia and irritability. Dose to be increased Seroquel 100 hs for insomnia Klonopin for anxiety which may help with the stimulant OD as well As need medications All risks, benefits and alternatives of the meds discussed, and the pt agreed and understood. Psychoeducation and support daily Encourage compliance with meds and after care Refer to outpatient program ie [facility] Teach healthy lifestyle methods, i.e. diet, exercise, meditation Smoking cessation and patch if needed Estimated Date of D/C: 06/06/18
[2018-06-04 06:06] VITALS: RESP 18; O2SAT 99
[2018-06-04] MEDS: Amoxicillin-Clav 875-125 mg Tab PO SCH ×2 (06:17→17:57)
[2018-06-04] MEDS: Saccharomyces Boulardi 250 mg Cap PO SCH (09:27)
--- NOTE | 2018-06-04 11:39 | PCM.PYCHPN ---
Psychiatric Progress Note - Psychiatric Progress Note Patient seen today, length of contact: 16 min Patient Chief Complaint: "Anxious" Problems Identified/Issues Discussed: The pt is seen, chart reviewed, case discussed with staff. Support and psychoeducation given, CBT and WI used briefly No new symptoms reported, improving slowly and needs more time No SEs from medications, risks discussed. Delia d/c'ed Abilify increased After care discussed Medication Change: Yes (increase abilify) Medical Record Reviewed: Yes Mental Status Examination - Cognitive Function Orientation: Person, Place, Situation, Time Memory: Intact Attention: WNL Concentration: Poor Association: WNL Fund of Knowledge: WNL - Mood Mood: Depressed, Anxious - Affect Affect: Constricted - Speech Speech: Appropriate - Formal Thought Process Formal Thought Process: Hallucinations, Paranoia - Suicidal Ideation Suicidal Ideation: No - Homicidal Ideation Homicidal Ideation: No Goal/Treatment Plan - Goal/Treatment Plan Need for Continued Stay: Discharge may exacerbated symptoms, Severe functional impairment Progress Toward Problem(s) and Goals/Treatment Plan: Lexapro for depression Abilify for mood swings, AH and paranoia and irritability. Dose to be increased again Seroquel 100 hs for insomnia Klonopin for anxiety which may help with the stimulant OD as well As need medications All risks, benefits and alternatives of the meds discussed, and the pt agreed and understood. Psychoeducation and support daily Encourage compliance with meds and after care Refer to outpatient program ie [facility] Teach healthy lifestyle methods, i.e. diet, exercise, meditation Smoking cessation and patch if needed Estimated Date of D/C: 06/06/18
[2018-06-05] MEDS: Amoxicillin-Clav 875-125 mg Tab PO SCH (06:21)
[2018-06-05 06:22] VITALS: TEMP 97.8
[2018-06-05] MEDS: Saccharomyces Boulardi 250 mg Cap PO SCH (09:52)
[2018-06-05 14:04] VITALS: BP 116/65; PULSE 73
== END 2018-06-05 10:41 | disposition home or self-care (01) | DRG 449 ==
LOC: C.ER 16:51 → C.9E 22:26 → C.6T 22:59 → OBSVTOIN 05-31 16:40 → C.5E 05-31 21:11
PROVIDERS: ADMIT Internal Medicine Pulmonary Disease; ATTEND Internal Medicine Pulmonary Disease
PROC: GZHZZZZ Group Psychotherapy (ICD-10-PCS; principal; 2018-05-31)
PROC: GZ58ZZZ Individual Psychotherapy, Cognitive-Behavioral (ICD-10-PCS; 2018-05-31)
PROC: HZ52ZZZ Individual Psychotherapy for Substance Abuse Treatment, Cognitive-Behavioral (ICD-10-PCS; 2018-05-31)
PROC: HZ59ZZZ Individual Psychotherapy for Substance Abuse Treatment, Supportive (ICD-10-PCS; 2018-05-31)
PROC: HZ56ZZZ Individual Psychotherapy for Substance Abuse Treatment, Psychoeducation (ICD-10-PCS; 2018-05-31)
PROC: HZ46ZZZ Group Counseling for Substance Abuse Treatment, Psychoeducation (ICD-10-PCS; 2018-05-31)
PROC: HZ42ZZZ Group Counseling for Substance Abuse Treatment, Cognitive-Behavioral (ICD-10-PCS; 2018-05-31)
PROC: GZ56ZZZ Individual Psychotherapy, Supportive (ICD-10-PCS; 2018-05-31)
DX: T43.692A Poisoning by other psychostimulants, intentional self-harm, initial encounter (principal); F33.3 Major depressive disorder, recurrent, severe with psychotic symptoms; F14.20 Cocaine dependence, uncomplicated; F10.20 Alcohol dependence, uncomplicated; F41.1 Generalized anxiety disorder; F60.3 Borderline personality disorder; F90.9 Attention-deficit hyperactivity disorder, unspecified type; R07.9 Chest pain, unspecified; G47.00 Insomnia, unspecified; R00.0 Tachycardia, unspecified; J32.9 Chronic sinusitis, unspecified; R42 Dizziness and giddiness; J45.909 Unspecified asthma, uncomplicated; F43.10 Post-traumatic stress disorder, unspecified